=== PATIENT | female | born 2000 | race Caucasian/White ===

== ENCOUNTER 2025-03-29 11:04 | Emergency (ER) | payer OTHER, SELFPAY ==
[2025-03-29 11:12] VITALS: BP 130/60; PULSE 67; RESP 20; TEMP 37; O2SAT 98; BMI 19.6
--- NOTE | 2025-03-29 11:12 | ED.GENADULT ---
HPI - General Adult General Chief complaint: Eye Problems Stated complaint: Left eye swelling Time Seen by Provider: 03/29/25 11:15 Source: patient, RN notes reviewed and old records reviewed Mode of arrival: ambulatory Limitations: no limitations History of Present Illness ED Provider: Javan LOVE narrative: Patient is a 24 year old female presenting to the ED with complaint of left eyelid pain and swelling since yesterday. Noted mild swelling yesterday, worse this am. Eye was not crusted shut on waking and has only had small amount of watery drainage. Initially thought it was a stye. Denies vision changes. Denies pain with EOMs. Denies recent cold symptoms. Does not wear contact lenses. Denies fevers. MD complaint: eyelid swelling Onset (ago): day(s) Related Data Previous Rx's ?Medication ?Instructions ?Recorded amoxicillin 875 mg-potassium 1 tab PO BID #10 tabs 03/29/25 clavulanate 125 mg tablet sulfamethoxazole 800 1 tab PO BID #10 tabs 03/29/25 mg-trimethoprim 160 mg tablet (Bactrim DS) Allergies Allergy/AdvReac Type Severity Reaction Status Date / Time No Known Allergies Allergy Verified 03/29/25 11:12 Review of Systems Review of Systems: As per HPI Yes all other systems are reviewed and are negative Constitutional: Constitutional: Reports as per HPI Physical Exam ED Vital Signs: Vital Signs - 24 hr 03/29/25 11:12 03/29/25 11:25 Temperature 98.6 F 98.6 F Pulse Rate 67 67 Respiratory Rate 20 20 Blood Pressure 130/60 130/60 Pulse Oximetry 98 98 Oxygen Delivery Method Room Air Room Air BMI result Body Mass Index 19.6 Vital signs have been reviewed and appear to be correct. Blood pressure normal. Heart rate normal. Respiratory rate normal. Temperature normal. Oxygen saturation normal. Const General: cooperative, healthy appearing and no acute distress Orientation/consciousness: oriented to person, oriented to place, oriented to time and patient oriented x3 Limitations: no limitations HENMT Head: Yes normocephalic and Yes atraumatic Ears: external ears normal General nose exam: Normal external nose present Face and sinus: Yes face symmetric Mouth: oropharynx normal and moist mucous membranes Throat: Yes uvula midline Eyes Visual Frank: normal visual frank by confrontation Alignment and Position: alignment normal and position normal Periorbital: periorbital findings normal Eyelids: Yes eyelid abnormality (left upper eyelid swelling, mild erythema, no internal/external hordeolum) Conjunctivae: conjunctivae normal Sclerae: sclerae normal Corneas: corneas normal Pupils: Equal, round and reactive pupils present EOM: EOMs intact bilaterally (no pain with EOMs) Neck Neck: Yes normal visual inspection and Yes supple Resp Effort & Inspection: normal respiratory effort and able to speak in complete sentences Auscultation: clear to auscultation bilaterally Cardio Rate: regular rate Rhythm: regular rhythm Heart sounds: S1 normal heart sound present and S2 normal heart sound present Skin General skin exam: elasticity normal and turgor normal Neuro General: oriented to person, oriented to place, oriented to time, patient oriented x3, moves all extremities, no focal motor deficits and CN's II-XI intact bilaterally Cranial nerves: Yes Equal, round and reactive pupils present Cognition (Neuro): normal cognition Extrem General: Yes full ROM, Yes no pedal edema and Yes no calf tenderness Psych Mental Status: mental status grossly normal Affect: normal affect Thought process: Normal thought process present Medical Decision Making Medical Decision Making [facility] Narrative: Patient is a 24 year old female presenting to the ED with complaint of left eyelid pain and swelling since yesterday. On exam patient is awake, A+Ox3, VS WNL, afebrile, normal neurological exam without focal deficits, physical exam findings as above. Given reported symptoms and physical exam findings, initial differential includes but is not limited to preseptal cellulitis, hordeolum, conjunctivitis. Physical exam findings c/w presetal cellulitis. No evidence of orbital cellulitis. Will treat with bactrim and augmentin. Return precautions discussed. Patient verbalized understanding of and agreement with plan. Differential Diagnosis Differential Diagnoses: The differential diagnosis associated with the presentation includes as per [facility] External Record Review External record reviewed: Inpatient record, Office record and Outpatient record Prescription Management I considered prescription management with: Antibiotic Discharge Plan Discharge Clinical Impression: Preseptal cellulitis of left upper eyelid Patient Disposition: Home, Self-Care Instructions: Periorbital Cellulitis (ED) Additional Instructions: You have been evaluated in the emergency department today for a skin infection of your eyelid, also known as cellulitis. Please take your prescribed antibiotics as directed for the full course of the medication. You can use Tylenol or ibuprofen per package instructions every 6 hours as needed for pain. If necessary, you can alternate these medications so that you can take one medication every 3 hours. For instance, at noon take ibuprofen, then at 3:00 p.m. take Tylenol, then at 6:00 p.m. take ibuprofen. Please schedule an appointment for follow-up with your primary care physician or carpet weaver as soon as possible. Return to the emergency department if you experience recurrent vomiting, fevers greater than 100.4? F, increasing area of redness, warmth around the area, foul-smelling discharge from the area, increased tenderness around the area, or any other concerning symptoms. Prescriptions: New sulfamethoxazole-trimethoprim [Bactrim DS] 800-160 mg tablet 1 tab PO BID Qty: 10 0RF amoxicillin-pot clavulanate 875-125 mg tablet 1 tab PO BID Qty: 10 0RF Print Language: Thai
[2025-03-29 11:25] VITALS: BP 130/60; PULSE 67; RESP 20; TEMP 37; O2SAT 98
--- OUTSIDE RECORDS SUMMARY | 2025-03-29 11:29 | XMS_ITS | Clinical Summary ---
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 Name Role Phone Unavailable Primary Care Provider Unavailabl e Social History Tobacco Use Types Packs/Day Years Used Date Smoking Tobacco: Never Assessed Comments Unknown Sex and Gender Information Value Date Recorded Sex Assigned at Not on file Legal Sex Female 2:55 AM EST Gender Identity Not on file Sexual Orientation Not on file Plan of Treatment Health Maintenance Due Date Last Done Comments Gonorrhea/Chlamydia Screening 2001 HPV Vaccines (1 - 3-dose series) 2016 Meningococcal B Vaccine (1 o f 2 - Standard) 2017 DTaP,Tdap,and Td Vaccines (1 - Tdap) 2020 Hepatitis B Vaccines (1 of 3 - 19+ 3-dose series) 2020 Cervical Cancer Screening: P ap Smear 2022 Depression Screening 06/12/2024 COVID-19 Vaccine (1 - 2023-2 5 season) 2025 Influenza Vaccine (#1) 2025 RSV Immunization Adult Patie nts (1 - 1-dose 75+ series) 2076 HIB Vaccines Aged Out No longer eligi ble based on patient's age to complete this topic Hepatitis A Vaccines Aged Out No long er eligible based on patient's age to complete this topic IPV Vaccines Aged Out No longer eligi ble based on patient's age to complete this topic MMR Vaccines Aged Out No longer eligi ble based on patient's age to complete this topic Meningococcal ACWY Vaccine Aged Out N o longer eligible based on patient's age to complete this topic Pneumococcal Vaccine: Pediat rics (0 to 5 Years) and At-Risk Patients (6 to 49 Years) Aged Out No longer eligible b ased on patient's age to complete this topic RSV Immunization Patients Un adam 20 months Aged Out No longer eligible b ased on patient's age to complete this topic Varicella Vaccines Aged Out No longer eligible based on patient's age to complete this topic
--- OUTSIDE RECORDS SUMMARY | 2025-03-29 11:29 | XMS_ITS | Clinical Summary ---
Author Organization [facility] Address [address] [place] [address] Care Team Providers Care Manager Developmental Name Role Phone Unavailable Primary Care Provider Unavailabl e Source Comments PLEASE NOTE, if this patient is a minor, it may be UNLAWFUL to discuss sensitive information that is contained in these records (such as FAMILY PLANNING, MENTAL HEALTH or SUBSTANCE ABUSE) with the minor patient's parent or other person without the patient's specific authorization.[facility] Allergies No known active allergies Medications No known medications Active Problems No known active problems Social History Tobacco Use Types Packs/Day Years Used Date Smoking Tobacco: Every Day Cigarettes Passive Smoke Exposure: Never Smokeless Tobacco: Never Tobacco Cessation:Ready to Q uit: Not Asked; Counseling Given: Not Answered Social Connections Answer Date Recorded Connectedness 0 05/27/2024 Financial Resource Strain Answer Date R ecorded Financial Resource Strain 0 2023 Stress Answer Date Recorded Stress 0 05/27/2024 Physical Activity Answer Date Recorded Physical Activity 0 05/27/2024 Food Insecurity Answer Date Recorded Food 0 05/27/2024 Transportation Needs Answer Date Record ed Transportation 0 05/27/2024 Housing Stability Answer Date Recorded Housing 0 05/27/2024 Safety and Environment Answer Date Ralf rded Safety 0 05/27/2024 Utilities Answer Date Recorded Utilities 0 05/27/2024 Employment Answer Date Recorded Stress 0 05/27/2024 Comments Unknown Sex and Gender Information Value Date Recorded Sex Assigned at Not on file Legal Sex Female 12:00 PM PDT Gender Identity Not on file Sexual Orientation Not on file Last Filed Vital Signs Vital Sign Reading Time Taken Comments Blood Pressure 116/76 12/26/2024 4:30 PM EDT Pulse 72 12/26/2024 4:30 PM EDT Temperature - - Respiratory Rate - - Oxygen Saturation - - Inhaled Oxygen Concentration - - Weight - - Height - - Body Mass Index - - Plan of Treatment Upcoming Encounters Date Type Department Care Team (Late st Contact Info) Description 07/02/2025 4:20 PM EST Office Visit [facility] [address] [place] [id number] Ji Bourgeois [address] [place] [address] Health Maintenance Due Date Last Done Comments Anxiety Screening 2001 HPV Screening 2001 Hepatitis C Screening 2001 Pap + HPV 2001 Tobacco Cessation Counseling (#1) 2001 Chlamydia Screening 2014 Gonorrhea Screening 2014 Imm-Varicella (1 of 2 - 13+ 2-dose series) 2014 HIV Screening 2016 Imm-HPV (1 - 3-dose series) 2016 Relationship Safety Screening/Counseling 2016 Imm-DTaP/Tdap/Td (1 - Tdap) 2020 Imm-Hepatitis B (1 of 3 - 19 + 3-dose series) 2020 Imm-Pneumococcal (1 of 2 - PCV) 2020 Cervical Cancer Screening 2022 Pap Smear 2022 Alcohol and Drug Screen 06/12/2024 Depression Annual Screen 06/12/2024 [id number] ( season) 2025 Imm-Influenza (#1) 2025 Dental BW 12/28/2025 12/26/2024, 06/21/2024 Dental Examination 12/28/2025 12/26/2024, 06/21/2024 Dental Perio Charting 12/28/2025 12/26/2024 Dental Prophy 12/28/2025 12/26/2024, 06/21/2024 Hypertension Screening (#1) 12/26/2027 Dental FMX/Pano 06/23/2029 06/21/2024 Cervical Ablation/Cold-Knife Conization Discontinued Cervical Cryotherapy Discontinued Colposcopy Discontinued Endometrial Biopsy Discontinued Excision/Leep Discontinued HPV Genotyping Discontinued Vaginal Pap Discontinued Vulvoscopy Discontinued Procedures Procedure Name Priority Date/Time Associated Diagnosis Comments BITEWINGS - FOUR RADIOGRAPHIC IMAGES Routine 12/26/2024 4:20 PM EDT Caries of enamel (incipient) Defective dental sabianism Fractured dental sabianism with loss of material Fracture of crown, enamel, and dentin of tooth without pulp exposure PROPHYLAXIS - ADULT Routine 12/26/2024 4 :20 PM EDT Caries of enamel (incipient) Fractured dental sabianism with loss of material Defective dental sabianism Fracture of crown, enamel, and dentin of tooth without pulp exposure PERIODIC ORAL EVALUATION ESTABLISHED PATIENT Routine 12/26/2024 4:20 PM EDT Caries of enamel (incipient) Fractured dental sabianism with loss of material Defective dental sabianism Fracture of crown, enamel, and dentin of tooth without pulp exposure INTRAORAL - COMP SERIES OF RADIOGRAPHIC IMAGES Routine 06/21/2024 3:00 PM EST Caries of enamel (incipient) Caries Fracture of crown, enamel, and dentin of tooth without pulp exposure Complete bony impaction of tooth Partial bony impaction of tooth from Last 3 Months or Most Recently Relevant to Health Maintenance [place]
== END 2025-03-29 11:25 | disposition home or self-care (01) ==
LOC: HO.ED 11:27
PROVIDERS: Emergency Provider Emergency Medicine
DX: H00.034 Abscess of left upper eyelid (principal)
CPT/HCPCS: 99282; 99283